=== PATIENT | male | born 1965 | race Caucasian/White ===

== ENCOUNTER 2019-12-25 10:04 | Inpatient (IN) | payer SELFPAY ==
[2019-12-25] VITALS (11 sets, daily range): BP systolic 107–141; BP diastolic 58–85; PULSE 58–150; RESP 18–27; TEMP 36.5–36.8; O2SAT 96–98; BMI 28.1
--- NOTE | 2019-12-25 10:24 | XRR_ITS ---
PROCEDURE INFORMATION: Exam: XR Chest, 1 View Exam date and time: 12/25/2019 10:26 AM Age: 54 years old Clinical indication: Chest pain; Additional info: Cp TECHNIQUE: Imaging protocol: XR of the chest Views: 1 view. COMPARISON: CT chest w con* [id number] 09/17/2014 11:47 AM FINDINGS: Lungs: Unremarkable. No consolidation. Pleural space: Unremarkable. No pleural effusion. No pneumothorax. Heart/Mediastinum: Unremarkable. No cardiomegaly. Bones/joints: Unremarkable. XR/XR chest 1V portable [id number] IMPRESSION: No acute findings.
--- NOTE | 2019-12-25 10:25 | ECG_ITS ---
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 Measurements Intervals [place] Rate: 178 P: PA: -1 QRS: -27 QRSD: 87 T: 72 QT: 252 QTc: 434 Interpretive Statements ATRIAL FIBRILLATION WITH RAPID VENTRICULAR RESPONSE BORDERLINE LEFT AXIS DEVIATION [QRS AXIS < -20] MODERATE ST DEPRESSION [0.05+ mV ST DEPRESSION] No previous ECG available for comparison Electronically Signed On 12-25-2019 18:12:30 CDT by Brittany Hathaway M.D. [id number] f
--- NOTE | 2019-12-25 10:26 | ED_ITS ---
HPI - SOB/Dyspnea General: Chief Complaint: Shortness of Breath/Dyspnea Stated Complaint: SOB, PAIN IN CHEST X 3-4 WKS Time Seen by Provider: 12/25/19 10:21 Source: patient Mode of arrival: ambulatory Limitations: no limitations History of Present Illness: HPI Narrative: 54-year-old male states over the last month he has been having chest pain along with shortness of breath. He states that it is been episodic in nature. He states he also has had palpitations and his heart rate is 178 here with A. fib. He has no known history of A. fib. Denies any recent long trips. Denies any vomiting or abdominal pain. Associated symptoms: Reports chest pain and palpitations; Deny abdominal pain, fever(s), nausea or vomiting Review of Systems Const: Denies: fever(s), chills, body aches or change in appetite Eyes: Denies: blurry vision or eye discomfort ENMT: Denies: throat pain or dental pain Card: Reports: chest pain and palpitations Resp: Denies: dyspnea GI: Denies: abdominal pain, nausea, vomiting or diarrhea : Denies: dysuria Musc: Denies: neck pain or back pain Skin/Breast: Denies: rash Neuro: Denies: headache(s) Psych: Denies: depression Eleazar/Lymph: Denies: easy bruising All/Imm: Denies: urticaria Physical Exam Const: COMMON NORMALS: no acute distress, patient oriented x3 and healthy appearing HENMT: COMMON NORMALS: normocephalic and atraumatic HEAD & SCALP: normocephalic and atraumatic Eye: COMMON NORMALS: Equal, round and reactive pupils present and EOMs intact bilaterally PUPIL: Yes Equal, round and reactive pupils present Neck/C-Spine: COMMON NORMALS: full ROM and supple Chest: COMMONS NORMALS: normal inspection of the chest and normal palpation of entire chest wall Resp: COMMON NORMALS: normal respiratory effort, No retractions, No use of accessory muscles and clear to auscultation bilaterally AUSCULTATION: clear to auscultation bilaterally Cardio: COMMON NORMALS: No murmurs present (Cardio) RATE: tachycardic RHYTHM: abnormal rhythm irregularly irregular GI: COMMON NORMALS: Normal to inspection, nondistended, normoactive bowel sounds present, Soft to palpation, non-tender and no masses PALPATION: Yes Soft to palpation Extremity: COMMON NORMALS: normal to inspection and full ROM Neuro: COMMON NORMALS: patient oriented x3, moves all extremities and no focal motor deficits Psych: COMMON NORMALS: mental status grossly normal, Normal thought process present and cooperative THOUGHT PROCESS: Normal thought process present Skin: COMMON NORMALS: no rashes or lesions noted and no wounds GENERAL SKIN EXAM: no rashes or lesions noted Course Vital Signs: Vital signs: Vital Signs Temperature 97.7 F 12/25/19 10:08 Pulse Rate 125 H 12/25/19 11:30 Respiratory Rate 27 H 12/25/19 11:30 Blood Pressure 114/70 12/25/19 11:30 Pulse Oximetry 97 12/25/19 11:30 MDM - SOB/Dyspnea MDM Narrative: Medical decision making narrative: Patient presents here with palpitations along with pain. He was found to be in A. fib with RVR. Patient is well-appearing here and troponin and d-dimer both negative. His heart rates improved after Cardizem. Spoke to hospitalist will admit to the cardiac gaurav pdown. Lab Data: Labs: Lab Results 12/25/19 12/25/19 12/25/19 Range/Units 10:40 10:40 10:40 WBC 7.9 (4.0-10.0) 10^3/ uL RBC 6.08 H (4.1-5.3) 10^6/u L Hgb 17.3 H (11.7-16.6) g/dL Hct 55.2 H (42.0-52.0) % MCV 90.8 (80-94) fL MCH 28.5 (28.0-34.0) pg MCHC 31.3 (30.0-36.0) g/dL RDW 13.5 (12.1-15.1) % Plt Count 268 (130-400) 10^3/c mm MPV 11.3 H (7.4-10.4) fL Neut % (Auto) 50.6 % Lymph % (Auto) 36.4 % [place] % (Auto) 7.7 % Eos % (Auto) 4.4 % Baso % (Auto) 0.6 % Neut # (Auto) 4.01 (1.8-7.7) 10^3/u L Lymph # (Auto) 2.9 (0.8-4.8) 10^3/u L [place] # (Auto) 0.6 (0.2-0.9) 10^3/u L Eos # (Auto) 0.4 (0.0-0.8) 10^3/u L Baso # (Auto) 0.1 (0.0-0.1) 10^3/u L Nucleated RBC % (a uto) 0 % Nucleated RBCs # 0.0 /100WBC PT 13.10 (12.1-14.9) SECO NDS INR 0.97 (0.8-1.2) D-Dimer <= 0.27 (0-0.59) ug/mIFE U Sodium Cancelled Potassium Cancelled Chloride Cancelled Carbon Dioxide Cancelled Anion Gap Cancelled BUN Cancelled Creatinine Cancelled GFR Calculation Cancelled Glucose Cancelled Calculated Osmolal ity Cancelled Calcium Cancelled Total Bilirubin Cancelled AST Cancelled ALT Cancelled Alkaline Phosphata se Cancelled Troponin T Baselin e Total Protein Cancelled Albumin Cancelled Globulin Cancelled 12/25/19 12/25/19 12/25/19 Range/Units 10:40 11:17 11:17 WBC (4.0-10.0) 10^3/ uL RBC (4.1-5.3) 10^6/u L Hgb (11.7-16.6) g/dL Hct (42.0-52.0) % MCV (80-94) fL MCH (28.0-34.0) pg MCHC (30.0-36.0) g/dL RDW (12.1-15.1) % Plt Count (130-400) 10^3/c mm MPV (7.4-10.4) fL Neut % (Auto) % Lymph % (Auto) % [place] % (Auto) % Eos % (Auto) % Baso % (Auto) % Neut # (Auto) (1.8-7.7) 10^3/u L Lymph # (Auto) (0.8-4.8) 10^3/u L [place] # (Auto) (0.2-0.9) 10^3/u L Eos # (Auto) (0.0-0.8) 10^3/u L Baso # (Auto) (0.0-0.1) 10^3/u L Nucleated RBC % (a uto) % Nucleated RBCs # /100WBC PT (12.1-14.9) SECO NDS INR (0.8-1.2) D-Dimer (0-0.59) ug/mIFE U Sodium 137 Potassium 4.1 Chloride 105 Carbon Dioxide 21 L Anion Gap 15.1 BUN 16 Creatinine 0.9 GFR Calculation 87.3 L Glucose 147 H Calculated Osmolal ity 288 Calcium 9.6 Total Bilirubin 0.2 AST 18 ALT 24 Alkaline Phosphata se 90 Troponin T Baselin e Cancelled 7 Total Protein 6.8 Albumin 4.4 Globulin 2.4 Imaging Data^: CXR: My impression: no acute abnormality EKG Data^: EKG 1: Attestation: I personally reviewed and interpreted this EKG as follows: EKG Interpretation Date: 12/25/19 EKG interpretation time: 10:22 Interpretation: afib hr [address] or t wave abnormalities qrs 87 qtc 346 Discharge Plan Discharge Patient Disposition: Admitted As Inpatient Clinical Impression: Atrial fibrillation Qualifiers: Atrial fibrillation type: unspecified Qualified Code(s): I48.91 - Unspecified atrial fibrillation Condition: Stable Referrals: Arnold Johnston MD [Family Provider] - Coding Level of Care Code ED Executive Assistant for Chg Fwd Exam Comprehensive
[2019-12-25 10:59] LABS: Basophils # 0.1 10^3/uL (0.0-0.1); Basophils % 0.6 %; Eosinophils # 0.4 10^3/uL (0.0-0.8); Eosinophils % 4.4 %; Hematocrit 55.2 % (42.0-52.0); Hemoglobin 17.3 g/dL (11.7-16.6); Lymphocytes # 2.9 10^3/uL (0.8-4.8); Lymphocytes % 36.4 %; Mean Corpuscular HGB Conc 31.3 g/dL (30.0-36.0); Mean Corpuscular Hemoglobin 28.5 pg (28.0-34.0); Mean Corpuscular Volume 90.8 fL (80-94); Mean Platelet Volume 11.3 fL (7.4-10.4); Monocytes # 0.6 10^3/uL (0.2-0.9); Monocytes % 7.7 %; Neutrophils # 4.01 10^3/uL (1.8-7.7); Neutrophils % 50.6 %; Nucleated Red Blood Cells % 0 %; Platelet Count 268 10^3/cmm (130-400); Red Blood Count 6.08 10^6/uL (4.1-5.3); Red Cell Distribution Width 13.5 % (12.1-15.1); White Blood Count 7.9 10^3/uL (4.0-10.0)
[2019-12-25 11:06] LABS: INR 0.97 (0.8-1.2)
[2019-12-25 11:09] LABS: D Dimer <= 0.27 ug/mIFEU (0-0.59)
[2019-12-25] MEDS: sodium chloride 0.9% 1,000 ML 999 ML IV (11:21)
[2019-12-25 12:05] LABS: Alanine Aminotransferase 24 U/L (0-41); Albumin Level 4.4 g/dL (3.5-5.2); Alkaline Phosphatase 90 IU/L (40-130); Anion Gap 15.1 (5-19); Aspartate Amino Transferase 18 U/L (0-40); Blood Urea Nitrogen 16 mg/dL (6-20); Calcium 9.6 mg/dL (8.5-10.5); Carbon Dioxide 21 mmol/L (22-29); Chloride 105 mmol/L (98-107); Creatinine Clr Calc Pharmacy 93.7466; Globulin 2.4 g/dL (1.3-4.6); Glomerular Filtration Rate 87.3 mL/min (90-130); Glucose 147 mg/dL (65-115); Osmolality Calculated 288 mOsm/kg (285-295); Potassium 4.1 mmol/L (3.5-5.1); Sodium 137 mmol/L (136-145); Total Bilirubin 0.2 mg/dL (0.15-1.2); Total Protein 6.8 g/dL (6.6-8.7)
[2019-12-25 12:06] LABS: Troponin(5th) Baseline 7 ng/L (0-15)
--- NOTE | 2019-12-25 12:25 | ECG_ITS ---
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 Measurements Intervals [place] Rate: 122 P: AL: -1 QRS: 12 QRSD: 101 T: 65 QT: 310 QTc: 443 Interpretive Statements ATRIAL FIBRILLATION WITH RAPID VENTRICULAR RESPONSE INCOMPLETE RIGHT BUNDLE BRANCH BLOCK [90+ ms QRS DURATION, TERMINAL R IN V1/V2, 40+ ms S IN I/aVL/V4/V5/V6] ABNORMAL RHYTHM ECG Compared to ECG 12/25/2019 10:22:22 Incomplete right bundle-branch block now present ST (T wave) deviation no longer present Electronically Signed On 12-25-2019 18:23:11 CDT by Brittany Hathaway M.D. [email or web address].[employer]/store/OM/[id number]
[2019-12-25] MEDS: sodium chloride 0.9% 1,000 ML 1000 ML IV ×2 (12:43→12:51)
--- NOTE | 2019-12-25 13:25 | P.HP_ITS ---
Providers/Chief Complaint Chief Complaint: SOB, PAIN IN CHEST X 3-4 WKS History of Present Illness Dru Servin is a 54 year old gentleman with long history of hypertension, reports history of having an PR, no coronary stenting, former smoker quit about 4 months ago, presents to the hospital due to episodes of palpitations, chest pressure, today persistent since about 4 AM, with the longest episode and most discomfort, although these episodes have been on and off for the past month. He denies known history of atrial fibrillation in the past. In ER is found to be in A. fib with RVR, initial heart rates up to 178. Was started on Cardizem drip, and currently up to 15 mg/h. Heart rates with some improvement down into 120s. He says the chest pressure is improved. 2 values of troponins so far normal. He otherwise says he is at baseline state of health. 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 He did injure his left knee somehow about a month and a half ago while walking before started having pain and then noticed some swelling in the joint. Denies at that time have any fevers, any rash or other infection elsewhere. He has been applying some ice. He denies any fevers or chills, denies any headache, nausea vomiting, diarrhea, muscle aches. He denies chest pain or pressure episodes outside of episodes of palpitations. Chest x-ray is unremarkable. D-dimer is low. Review of Systems Const: Denies: fever(s), chills, body aches, change in appetite or malaise Eyes: Denies: blurry vision or eye discomfort ENMT: Denies: throat pain or dental pain Card: Reports: chest pain and palpitations; Denies: edema, swelling of feet/ankles, lightheadedness, syncope, dyspnea on exertion or orthopnea Resp: Denies: dyspnea, productive cough, non-productive cough or hemoptysis GI: Denies: abdominal pain, nausea, vomiting or diarrhea : Denies: dysuria, urinary frequency or urinary urgency Musc: Reports: joint swelling (L knee); Denies: neck pain, back pain, extremity swelling or joint redness Skin/Breast: Denies: rash, erythema, sores, new lesions or changing lesions Neuro: Denies: headache(s), numbness in extremities, weakness in extremities, sensory changes, frequent falls, vertigo or confusion Psych: Denies: change in appetite Endo: Denies: excessive sweating or flushing Eleazar/Lymph: Denies: easy bruising All/Imm: Denies: urticaria Medications/Allergies Allergies Allergy/AdvReac Type Severity Reaction Status Date / Time No Known Allergies Allergy Verified 12/25/19 10:15 PFSH Acute PFSH: Medical History HTN (hypertension) Nephrolithiasis Surgical History H/O lithotripsy Family History Mother CAD (coronary artery disease), Onset Age: 56 CABG Social History Smoking and tobacco status: former smoker Quit status (tobacco): has quit using tobacco Former quit date comment: 4 months ago Alcohol intake: current Alcohol intake frequency: 0-2 Drinks per Day Alcohol type: beer Substance/Drug Use: never Lives independently: Yes Household members: spouse Marital status: Current occupational status: employed Vitals/I&O/Wt Last Vital Signs Temp 97.7 F 12/25/19 10:08 Pulse 118 H 12/25/19 13:18 Resp 20 H 12/25/19 13:18 BP 126/85 12/25/19 13:18 Pulse Ox 98 12/25/19 13:18 12/24/19 12/25/19 12/25/19 22:59 06:59 14:59 Intake Total 1152.958 / 1152.958 Balance 1152.958 / 1152.958 Weight last 48 hrs Weight 81.647 kg Physical Exam Const: COMMON NORMALS: no acute distress and patient oriented x3 HENMT: COMMON NORMALS: oropharynx normal Neck/C-Spine: COMMON NORMALS: no JVD Resp: COMMON NORMALS: normal respiratory effort and clear to auscultation bilaterally AUSCULTATION: clear to auscultation bilaterally Cardio: COMMON NORMALS: no JVD, regular rhythm, S1 normal heart sound present, S2 normal heart sound present and No murmurs present (Cardio) RATE: tachycardic RHYTHM: abnormal rhythm irregularly irregular HEART SOUNDS: S1 normal heart sound present and S2 normal heart sound present GI: COMMON NORMALS: Normal to inspection, nondistended, normoactive bowel sounds present, Soft to palpation and non-tender PALPATION: Yes Soft to palpation Extremity: COMMON NORMALS: no pedal edema OTHER: Appears to have some minimal swelling, possibly minimal joint effusion on the left knee compared to the right, no erythema, no warmth on palpation. No external wounds. Neuro: COMMON NORMALS: patient oriented x3 and moves all extremities Skin: COMMON NORMALS: no rashes or lesions noted GENERAL SKIN EXAM: no rashes or lesions noted Data : 12/25/19 10:40 12/25/19 11:17 A&P Assessment and plan (1) Paroxysmal atrial fibrillation with RVR: A. fib with RVR, new onset, associated with palpitations, chest pressure. Troponin without elevation, not suggestive of acute PR. Chest pressure is better with improvement in heart rate. No suggestion of acute infection. He thought perhaps pain may be contributing due to persistent pain for about a mo nth and a half in his left knee. Potassium is okay. Check magnesium, TSH. Once heart rate improves check echocardiogram. At this time on Cardizem, requiring 15 mg/h. Heart rates are difficult to co ntrol, still in 120s-130s. We will add metoprolol 25 mg twice a day. Titrate depending on response. Monitor on telemetry. Reports some possible history of CAD, reports may have had an PR about 4 years ago. I see in 2016 had a normal Lexiscan stress test. He is a former smoker, quit 4 months ago, has longstanding hypertension, family history of coronary disease, would benefit from additional assessment for underlying coronary disease once PR is ruled out, and heart rate is under control. Continue aspirin which he already takes at home at 81 mg. Check cholesterol, A1c. Chads vasc score is 1, depending on additional findings consider discussion regarding anticoagulation. Status: Acute (2) Swelling of left knee joint: About a month and a half in duration, started while he was walking in the [place]. Appears to have perhaps some effusion on exam. There is no redness or warmth to palpation. Says he has been applying ice. Pain is persistent, and he feels may be contributing to his atrial fibrillation. Will assess by CT scan currently. Depending on findings consider additional evaluation, possibly MRI, possibly referral to orthopedics given he needs to ambulate quite a bit at work. Status: Acute (3) HTN (hypertension): History of longstanding hypertension. He takes medication at home but does not remember what. Currently on diltiazem, metoprolol monitor blood pressures. He will try to get off his medication list. Status: Acute Attestations Medical Necessity Statement*: Admission of over 2 midnights is going to be required for assessment of management of new onset atrial fibrillation with RVR which is resistant to treatment he has so far received, possible underlying coronary disease in a gentleman with risk factors. Coding Level of Care Code Acute Logistics/Shipper for Jigar Sun Diagnoses Paroxysmal atrial fibrillation with RVR I48.0 Swelling of left knee joint M25.462 HTN (hypertension) I10
[2019-12-25 13:47] LABS: Troponin 5 2HR 7.64 ng/L (0-15); Troponin 5 2HR Delta 0.64 ABS# (0-10)
--- NOTE | 2019-12-25 14:07 | CTR_ITS ---
PROCEDURE INFORMATION: Exam: CT Left Lower Extremity Without Contrast, Knee Exam date and time: 12/25/2019 2:47 PM Age: 54 years old Clinical indication: Pain; Knee; Left; Additional info: 1 month pain, effusion TECHNIQUE: Imaging protocol: CT of the Left lower extremity without contrast was performed. Exam focused on the knee. Radiation optimization: All CT scans at this facility use at least one of these dose optimization techniques: automated exposure control; mA and/or kV adjustment per patient size (includes targeted exams where dose is matched to clinical indication); or iterative reconstruction. COMPARISON: No relevant prior studies available. RADIATION DOSE METRICS: Total DLP (mGy-cm): 241.27 FINDINGS: Bones/joints: There is a small knee joint effusion. There is mild cartilage loss in the medial joint space. No chondrocalcinosis. There is a tiny calcification in the posterior knee along the PCL that may be a small osteochondral body measuring 3 mm in size. There is no acute or healing fracture. No dislocation. Patellar enthesopathy is noted. Soft tissues: No soft tissue fluid collection. No foreign body. CT/CT knee LT wo con* [id number] IMPRESSION: There is a small knee joint effusion with moderate degenerative changes. No acute bony abnormality. Radiation Dose CTDIVOL = (mGy): DLP = 241.27 (mGy-cm)
[2019-12-25 14:54] LABS: Magnesium 2.5 mg/dL (1.7-2.3); Thyroid Stimulating Hormone 1.09 uIU/mL (0.27-4.20)
--- NOTE | 2019-12-25 15:13 | PC.NURSE ---
pt arrived from ed via stretcher. pt on portable monitor heart rate in the 60's, cardizem titrated down to 10. pt transferred to bed. admission completed, call light within reach, will continue to monitor.
[2019-12-25] MEDS: heparin 5,000 unit/mL INJ 1 mL 5000 UNIT SUBCUT (15:34)
[2019-12-25] MEDS: metoprolol tartrate 25 mg Tablet PO (15:35)
[2019-12-25] MEDS: aspirin 81 mg Chew Tablet PO (15:35)
--- NOTE | 2019-12-25 16:25 | ECG_ITS ---
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 Measurements Intervals [place] Rate: 57 P: 44 IA: 135 QRS: -1 QRSD: 114 T: -30 QT: 390 QTc: 382 Interpretive Statements SINUS BRADYCARDIA MODERATE INTRAVENTRICULAR CONDUCTION DELAY [110+ ms QRS DURATION] NONSPECIFIC T-WAVE ABNORMALITY Compared to ECG 12/25/2019 13:35:44 Intraventricular conduction delay now present T-wave abnormality now present Atrial fibrillation no longer present Incomplete right bundle-branch block no longer present Electronically Signed On 12-25-2019 18:21:58 CDT by Brittany Hathaway M.D. [id number]
[2019-12-25 17:44] LABS: Troponin 5 6HR 7.43 ng/L (0-15); Troponin 5 6HR Delta 0.43 ng/L (0-12)
[2019-12-26] VITALS: BP 105/63; PULSE 60; RESP 17; TEMP 36.9; O2SAT 95
--- NOTE | 2019-12-26 01:49 | PC.NURSE ---
Patients diltiazem was stopped at 1700. patient has been stable. notified DR. Braden V/O continue to hold but do not D/C at this time.
[2019-12-26] MEDS: heparin 5,000 unit/mL INJ 1 mL 5000 UNIT SUBCUT ×4 (01:52→21:42)
[2019-12-26 04:00] VITALS: BP 121/68; PULSE 58; RESP 20; TEMP 36.9; O2SAT 96
[2019-12-26 06:38] LABS: Alanine Aminotransferase 20 U/L (0-41); Albumin Level 3.8 g/dL (3.5-5.2); Alkaline Phosphatase 68 IU/L (40-130); Anion Gap 15.2 (5-19); Aspartate Amino Transferase 14 U/L (0-40); Blood Urea Nitrogen 18 mg/dL (6-20); Calcium 8.8 mg/dL (8.5-10.5); Carbon Dioxide 22 mmol/L (22-29); Chloride 106 mmol/L (98-107); Creatinine Clr Calc Pharmacy 93.7466; Globulin 2.2 g/dL (1.3-4.6); Glomerular Filtration Rate 87.3 mL/min (90-130); Glucose 128 mg/dL (65-115); Magnesium 2.1 mg/dL (1.7-2.3); Osmolality Calculated 292 mOsm/kg (285-295); Potassium 4.2 mmol/L (3.5-5.1); Sodium 139 mmol/L (136-145); Total Bilirubin 0.3 mg/dL (0.15-1.2)
[2019-12-26 06:45] LABS: Cholesterol 122 mg/dL (0-200); HDL Cholesterol 37 mg/dL (60-100); LDL Cholesterol Calculated 59 mg/dL (50-129); LDL HDL Ratio 1.59 RATIO (0.00-3.22); Triglycerides 130 mg/dL (0-150)
[2019-12-26 07:20] VITALS: BP 122/75; PULSE 54; RESP 18; TEMP 36.3; O2SAT 96
--- NOTE | 2019-12-26 08:30 | PC.NURSE ---
Patient HR 50-60s NSR, BP 122/75. Telephone order received from Dr. Carter to hold morning metoprolol dose and continue to monitor HR, RBTO.
[2019-12-26] MEDS: aspirin 81 mg Chew Tablet PO (08:31)
[2019-12-26 08:38] LABS: Estmated Average Glucose 131; Hemoglobin A1C 6.2 % (4.0-6.0)
--- NOTE | 2019-12-26 09:00 | ECG_ITS ---
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 Interpretive Statements NAME OF STUDY: LEXISCAN SESTAMIBI STRESS TEST INDICATION: New Afib; Chest Pressure; CAD risk factors PROCEDURE: At the baseline, the blood pressure was 98/76 mmHg with a heart rate of 53 bpm and oxygen saturation 96%. The electrocardiogram showed sinus bradycardia at 54 bpm, normal axis and nonspecific T wave abnormality in lead III. The Lexiscan was infused over a period of 20 seconds. A total of 0.4 milligrams of Lexiscan was infused. The stress phase was continued for a total of 5 minutes. Heart rate at the end of the stress phase was 80 bpm with a blood pressure of 138/58 mmHg and oxygen saturation 97%. The EKG at the peak infusion revealed sinus rhythm with no significant ST-T wave changes. Sestamibi was injected 20 seconds after the Lexiscan infusion. Blood pressure at the end of the recovery phase was 139/58 mmHg, oxygen saturation 96% with a heart rate of 73 beats per minute. CONCLUSION: 1. Normal EKG response to LexiScan infusion. 2. No LexiScan induced chest pain or cardiac arrhythmia. 3. Normal blood pressure and heart rate response. 4. Sestamibi/sestamibi perfusion scan pending; see separate report. Electronically Signed On 12-27-2019 13:24:26 CDT by Brittany Hathaway M.D. [id number]
--- NOTE | 2019-12-26 10:00 | PC.CHAP ---
Pastoral Care Encounter/Spiritual Assessment Type of Contact [] Declined hypo splasher visit [] Patient/Family/Request visit [] Outpatient visit [] Follow-up visit [] Physician referral [] Code/Alert [x] Routine visit [] Staff referral [] Actively dying [] Patient sleeping [] Family support [] [] Out of room [] Palliative care [] [] Receiving care in room [] Pre-surgical visit [] Trauma [] Long length of stay [] ICU visit [] Other: Relational/Emotional Strength [] Patient feels connected with others/family/visitors/staff [] Distress [] Loneliness/isolation [] Abandonment Spirituality of Patient [] Person of Zunilda [] Attends Hoahaoism of their Zunilda [] Believes in Prayer [] Reads Bible or Confucianist materials [] There are Spiritual issues to be addressed Hypoid Gear Generator Interventions [x] Prayer [x] Active listening [x] Non-anxious presence [x] Spiritual/emotional support [] Crisis/trauma care [] Spiritual counseling [] Bereavement support [] Provided bereavement packet [] Provided Bible/devotional materials [] Provided toy/stuffed animal, coloring book to patient or family member [] Provided Communion [] Anointing/Evening Shade [] Salvation [x] Completed spiritual assessment [] Other: Impact on Illness or Injury [] Angry [] Fearful [] Anxious [] Often cries [] Exhaustion [] Unable to work [] Unable to attend alevism [] Unable to walk/stand [] Unable to read [] Unable to drive [] Unable to eat/drink [] Unable to sleep [] Unable to be with family [] Patient intubated [] Other: Summary Patient resting well. Gentle man, awaiting tests Time spent with patient 10 min
--- NOTE | 2019-12-26 10:09 | P.PN_ITS ---
Subjective Subjective: Interval history: No acute overnight events. Awaiting stress test, however unable to be performed as the nuclear medicine lab is done today. CT of the leg returned with some mild effusion and degenerative changes of the left knee. No overt signs of septic arthritis. Medications: Reviewed: Yes Vitals/I&O/Wt Last Vital Signs Temp 97.4 F L 12/26/19 07:20 Pulse 54 L 12/26/19 07:20 Resp 18 12/26/19 07:20 BP 122/75 12/26/19 07:20 Pulse Ox 96 12/26/19 07:20 12/25/19 12/26/19 12/26/19 22:59 06:59 14:59 Intake Total 531.334 / 0522.059 1873 / 3024.292 240 / 240 Balance 531.334 / 0886.106 1002 / 3024.292 240 / 240 Weight last 48 hrs Weight 81.647 kg Physical Exam Narrative: EXAM NARRATIVE: GEN: Awake, alert and oriented, no acute distress CVS: S1S2 N RS: CTA B/L Abd: Soft, nt/nd , bs+ SUPERVISOR CRACK OFF: no focal neuro deficits Extremities mild fullness along the medial aspect of the nail, no gross signs of septic arthritis. Data : 12/25/19 10:40 12/26/19 05:18 A&P Assessment and plan (1) Paroxysmal atrial fibrillation with RVR: A. fib with RVR, new onset, associated with palpitations, chest pressure. Troponin without elevation, not suggestive of acute [place]. Chest pain is now currently resolved. Patient is currently converted to sinus rhythm, heart rate remains controlled Continue metoprolol 25 mg twice a day. Continue aspirin which he already takes at home at 81 mg. Chads vasc score is 1 Stress test planned however NM is down today, will be done tomorrow. Status: Acute (2) Swelling of left knee joint: About a month and a half in duration, started while he was walking in the [place]. CT with effusion and degenrative changes No signs of septic arthritis PT/OT assessment for OA referral to orthopedics as outpatient Status: Acute (3) HTN (hypertension): Status: Acute (4) Knee joint effusion: Status: Acute Attestations Medical Necessity Statement*: planned fro stress test tomorrow morning Coding Level of Care Code Acute Rating Clerk for g Fwd Diagnoses Paroxysmal atrial fibrillation with RVR I48.0 Swelling of left knee joint M25.462 HTN (hypertension) I10 Knee joint effusion M25.469
[2019-12-26 12:37] VITALS: BP 143/79; PULSE 64; RESP 21; TEMP 36.7; O2SAT 97
[2019-12-26 14:45] VITALS: BP 127/75; PULSE 59; RESP 21; TEMP 36.6; O2SAT 96
[2019-12-26] MEDS: metoprolol tartrate 25 mg Tablet PO (17:24)
--- NOTE | 2019-12-26 17:55 | USCV_ITS ---
Dru Servin Age: 54 Gender: M : 1965 Exam Date: 12/26/2019 06:24 Ordering Phys: Marbin Sandra MD Technologist: Manish Lantigua Exam Location: [facility] [place] Site Location: [[facility] Site Location] Indication: NEW AFIB BP: / HR: 53 Rhythm: Sinus Technical Quality: Adequate MEASUREMENTS (Male / Female) Normal Values 2D ECHO LV Diastolic Diameter PLAX 4.7 cm 4.2 - 5.9 / 3.9 - 5.3 cm LV Systolic Diameter PLAX 2.6 cm IVS Diastolic Thickness 1.2 cm 0.6 - 1.0 / 0.6 - 0.9 cm IVS Systolic Thickness 1.7 cm LVPW Diastolic Thickness 0.8 cm 0.6 - 1.0 / 0.6 - 0.9 cm LVPW Systolic Thickness 1.5 cm LVOT Diameter 2.1 cm LV Ejection Fraction 2D Teich 76.0 % LV Ejection Fraction MOD 2C 64.6 % LV Ejection Fraction 2C AL 65.4 % LA Diameter 3.3 cm LA Width 3.6 cm LA Height 4.4 cm RA Width 4.0 cm RA Height 4.8 cm M-MODE LV Diastolic Diameter MM 5.0 cm 4.2 - 5.9 / 3.9 - 5.3 cm LV Systolic Diameter MM 3.6 cm LV Ejection Fraction MM Teich 55.0 % IVS Diastolic Thickness MM 1.1 cm 0.6 - 1.0 / 0.6 - 0.9 cm IVS Systolic Thickness MM 1.4 cm LVPW Diastolic Thickness MM 1.3 cm 0.6 - 1.0 / 0.6 - 0.9 cm LVPW Systolic Thickness MM 1.6 cm RV Diastolic Diameter MM 1.5 cm Aortic Annulus Diameter 3.7 cm LA Ao Ratio MM 1.0 MV E Point Septal Separation 0.5 cm DOPPLER AV Peak Velocity 127.0 cm/s LVOT Peak Velocity 80.0 cm/s AV Area Cont Eq vti 2.4 cm squared AV Area Cont Eq pk 2.2 cm squared MV Area PHT 5.0 cm squared Mitral E to A Ratio 1.1 MV E' Velocity 43.0 cm/s Mitral E to MV E' Ratio 6.0 Mitral E to LV E' Lateral Ratio 5.5 Mitral E to LV E' Septal Ratio 6.5 TR Peak Velocity 202.7 cm/s TR Peak Gradient 16.4 mmHg TV Peak E Velocity 71.0 cm/s Right Atrial Pressure 3.0 mmHg Pulmonary Artery Systolic Pressu 19.4 mmHg PV Peak Velocity 92.0 cm/s FINDINGS Left Ventricle Normal left ventricular size, systolic function and wall thickness, with no regional wall motion abnormalities. LVEF is 55-60%. Normal left ventricular wall thickness. Normal diastolic filling pattern. Right Ventricle The right ventricle is normal in size and function. Right Atrium The right atrium is normal in size. Left Atrium The left atrium is normal in size. Mitral Valve Structurally normal mitral valve without significant stenosis or prolapse. There is no mitral regurgitation. Aortic Valve Structurally normal aortic valve without significant sclerosis or stenosis. There is no aortic regurgitation. Tricuspid Valve Structurally normal tricuspid valve without significant stenosis or regurgitation. RVSP is 25-30mmHg Pulmonic Valve Structurally normal pulmonic valve without significant stenosis. There is no pulmonic regurgitation. Pericardium Normal pericardium without effusion. Aorta Normal ascending aorta dimension. CONCLUSIONS LV systolic function is normal with EF of 55-60% Diastolic function is normal No comparison studies available Davis Collado MD (Electronically Signed) Final Date: 26 December 2019 08:32 S
--- NOTE | 2019-12-26 19:00 | PC.NURSE ---
Shift Summary Patient had uneventful shift. VSS. No chest pain reported by patient. Report given to oncoming nurse. No further needs identified at this time.
--- NOTE | 2019-12-26 19:25 | PC.NURSE ---
Rounding: Patient resting in bed. Patient is alert and oriented denies any pain or needs.
[2019-12-26 20:00] VITALS: BP 122/72; PULSE 62; RESP 22; TEMP 36.6; O2SAT 97
[2019-12-27] VITALS (7 sets, daily range): BP systolic 127–153; BP diastolic 67–78; PULSE 50–81; RESP 17–21; TEMP 36.4–36.8; O2SAT 95–98
[2019-12-27 04:46] LABS: Basophils # 0.1 10^3/uL (0.0-0.1); Basophils % 0.9 %; Eosinophils # 0.4 10^3/uL (0.0-0.8); Eosinophils % 4.9 %; Hemoglobin 15.2 g/dL (11.7-16.6); Lymphocytes # 3.3 10^3/uL (0.8-4.8); Lymphocytes % 38.5 %; Mean Corpuscular Hemoglobin 28.3 pg (28.0-34.0); Mean Corpuscular Volume 91.2 fL (80-94); Mean Platelet Volume 11.5 fL (7.4-10.4); Monocytes # 0.8 10^3/uL (0.2-0.9); Monocytes % 9.4 %; Neutrophils # 3.92 10^3/uL (1.8-7.7); Neutrophils % 45.9 %; Nucleated Red Blood Cells % 0 %; Platelet Count 223 10^3/cmm (130-400); Red Blood Count 5.37 10^6/uL (4.1-5.3); Red Cell Distribution Width 13.5 % (12.1-15.1); White Blood Count 8.5 10^3/uL (4.0-10.0)
[2019-12-27 05:01] LABS: Alanine Aminotransferase 21 U/L (0-41); Alkaline Phosphatase 76 IU/L (40-130); Anion Gap 12.3 (5-19); Aspartate Amino Transferase 17 U/L (0-40); Blood Urea Nitrogen 20 mg/dL (6-20); Calcium 9.2 mg/dL (8.5-10.5); Carbon Dioxide 25 mmol/L (22-29); Chloride 103 mmol/L (98-107); Creatinine Clr Calc Pharmacy 84.3719; Globulin 2.5 g/dL (1.3-4.6); Glomerular Filtration Rate 77.3 mL/min (90-130); Glucose 117 mg/dL (65-115); Magnesium 2.2 mg/dL (1.7-2.3); Osmolality Calculated 286 mOsm/kg (285-295); Potassium 4.3 mmol/L (3.5-5.1); Sodium 136 mmol/L (136-145); Total Bilirubin 0.3 mg/dL (0.15-1.2); Total Protein 6.5 g/dL (6.6-8.7)
--- NOTE | 2019-12-27 05:36 | PC.NURSE ---
End of shift: Patient has had a uneventful shift. Patient is alert and oriented. Patient has rested well this shift. Denies any pain.
[2019-12-27 05:53] LABS: Uric Acid 6.8 mg/dL (3.4-7.0)
[2019-12-27] MEDS: heparin 5,000 unit/mL INJ 1 mL 5000 UNIT SUBCUT (06:10)
--- NOTE | 2019-12-27 08:00 | NMCV_ITS ---
NM enmanuel perf SPECT r/s* [id number] Dru Servin Age: 54 Gender: M : 1965 Exam Date: 12/27/2019 07:58 Ordering Phys: Marbin Sandra MD Technologist: HARIS Billings Exam Location: [facility] Indications: SOB, chest pain 3-4 weeks STRESS TEST [facility] IMAGE PROTOCOL Rest/Stress 1 Lexiscan Day Radiopharmaceutical Dose (mCi) Administration Site Administered by Rest: Tc-99m 10.6 IV HARIS Veloz Stress:Tc-99m 32.6 IV HARIS Billings Rest: 27-Dec-2019 60 Discovery 630 Stress: 27-Dec-2019 60 Discovery 630 0.4mg Lexiscan. Images obtained in supine and prone position. SPECT RESULTS Technical Quality: Excellent Raw Data Analysis: Normal Image Corrections: No attenuation or motion correction applied Summed Stress Score: 0 Summed Rest Score: 0 Summed Difference Score: 0 PERFUSION FINDINGS SPECT images demonstrate homogeneous tracer distribution throughout the myocardium. FUNCTIONAL RESULTS (calculated via Gated SPECT) Stress Image LV EF (%): 50 Stress EDV (mL):94 TID: 1.13 Stress ESV (mL):47 FUNCTIONAL FINDINGS: The left ventricle is normal in size. Transient Ischemia Dilatation of 1.1. There is mildly decreased left ventricular systolic function. The left ventricular ejection fraction is mildly reduced with a value of 50%. There is mildly decreased wall thickening. Normal end-diastolic and end-systolic volumes. IMPRESSIONS 1. Myocardial perfusion imaging is normal. 2. There is mildly decreased left ventricular systolic function, LVEF=50%. 3. There is mildly decreased wall thickening. 4. This study suggests a low likelihood of angiographically significant coronary artery disease. 5. Normal EKG response to Lexiscan infusion. This is has limited sensitivity due to pharmacological protocol. Refer to EKG portion of the study for further details. Brittany Hathaway MD (Electronically Signed) Final Date: 27 December 2019 13:26 S
[2019-12-27] MEDS: regadenoson 0.4 Mg/5 ml Syringe IVP (08:47)
--- NOTE | 2019-12-27 08:59 | PC.CHAP ---
Pastoral Care Encounter/Spiritual Assessment Type of Contact [] Declined book shelver visit [] Patient/Family/Request visit [] Outpatient visit [] Follow-up visit [] Physician referral [] Code/Alert [x] Routine visit [] Staff referral [] Actively dying [] Patient sleeping [] Family support [] [] Out of room [] Palliative care [] [] Receiving care in room [] Pre-surgical visit [] Trauma [] Long length of stay [] ICU visit [] Other: Relational/Emotional Strength [] Patient feels connected with others/family/visitors/staff [] Distress [] Loneliness/isolation [] Abandonment Spirituality of Patient [] Person of Zunilda [] Attends Christian of their Zunilda [] Believes in Prayer [] Reads Bible or Tenriism materials [] There are Spiritual issues to be addressed Senior Analyst Programmer Interventions [x] Prayer [x] Active listening [x] Non-anxious presence [x] Spiritual/emotional support [] Crisis/trauma care [] Spiritual counseling [] Bereavement support [] Provided bereavement packet [] Provided Bible/devotional materials [] Provided toy/stuffed animal, coloring book to patient or family member [] Provided Communion [] Anointing/[place] [] Salvation [x] Completed spiritual assessment [] Other: Impact on Illness or Injury [] Angry [] Fearful [] Anxious [] Often cries [] Exhaustion [] Unable to work [] Unable to attend scientologist [] Unable to walk/stand [] Unable to read [] Unable to drive [] Unable to eat/drink [] Unable to sleep [] Unable to be with family [] Patient intubated [] Other: Summary preparing for stress test... looking for answer regarding high blood pressure Time spent with patient 10 min
[2019-12-27] MEDS: aspirin 81 mg Chew Tablet PO (09:24)
--- NOTE | 2019-12-27 09:45 | PC.NURSE ---
verbal order received from Dr. Carter to hold metoprolol dose due to bradycardia, RBVO. Nurse to continue to monitor.
--- NOTE | 2019-12-27 16:05 | PC.NURSE ---
Discharge instructions given per the physician's orders. Patient verbalized understanding and did not have any further questions. Patient has dressed self, IV has been removed. Patient at bedside to take patient home in private vehicle. No further needs identified at this time.
--- NOTE | 2019-12-27 16:34 | PM.DCS ---
Discharge Providers Date of Admission: 12/25/19 12:12 Date of Discharge: December 27, 2019 Attending Provider at Admission: Marbin Sandra Attending Provider at Discharge: Lori Carter MD Diagnoses at Discharge Discharge Diagnosis (1) Paroxysmal atrial fibrillation with RVR: Status: Acute (2) Swelling of left knee joint: Status: Acute (3) HTN (hypertension): Status: Acute (4) Knee joint effusion: Status: Acute Reason for Visit Reason for Visit: SOB, PAIN IN CHEST X 3-4 WKS Hospital Course Discharge Summary: Dru Servin is a 54 year old gentleman with long history of hypertension, reports history of having an TX, no coronary stenting, former smoker quit about 4 months ago, presents to the hospital due to episodes of palpitations, chest pressure. In ER is found to be in A. fib with RVR, initial heart rates up to 178. Was started on Cardizem drip and converted to sinus rhythm within about 24 hours. Since then he has been maintained on metoprolol 25 mg p.o. twice daily. Due to heart rate dropping down to 50s, metoprolol dose was eventually reduced to 12.5 mg p.o. twice daily on discharge. Losartan has remained on hold while he has been in the hospital and blood pressure has been maintained. He is asked to keep a blood pressure log at home and to resume losartan diastolic blood pressure exceeds 150 mmHg. He also underwent a stress test to rule out any underlying ischemia and this resulted as within normal range today. Echocardiogram showed LV systolic function of EF 55 to 60% and normal diastolic function.Chads vasc score is 1, not started on anticoagulation at this time. follow up for further assessment with cardiology as an outpatient in the next 7 to 10 days. Physical Exam Narrative: EXAM NARRATIVE: GEN: Awake, alert and oriented, no acute distress CVS: S1S2 N RS: CTA B/L Abd: Soft, nt/nd , bs+ PERSONAL INJURY LITIGATION PARALEGAL: no focal neuro deficits Discharge Data Data Completed and Pending: Completed Studies During Hospitalization Category Date Time Status CT knee LT wo con * [id number] Routine Cat Scan 12/25/19 14:07 Completed Sestamibi Stress Test Request Routi ne Exams 12/26/19 09:00 Completed XR chest 1V megha ble [id number] Stat Exams 12/25/19 10:24 Completed NM enmanuel perf SPECT r/s* [id number] Routin e Nuc Med 12/27/19 08:00 Completed CV echo complete* [id number] Routine Ultrasound 12/26/19 17:55 Completed Pending at discharge Category Date Time Status Basic Metabolic P adonay AM LABS Lab 12/28/19 04:00 Ordered Comprehensive Met abolic Panel AM LA BS Lab 12/28/19 04:00 Ordered Magnesium AM LABS Lab 12/28/19 04:00 Ordered Labs from last 24 hours 12/27/19 12/27/19 12/27/19 04:05 04:05 04:05 WBC 8.5 RBC 5.37 H Hgb 15.2 Hct 49.0 MCV 91.2 MCH 28.3 MCHC 31.0 RDW 13.5 Plt Count 223 MPV 11.5 H Neut % (Auto) 45.9 Lymph % (Auto) 38.5 Barton % (Auto) 9.4 Eos % (Auto) 4.9 Baso % (Auto) 0.9 Neut # (Auto) 3.92 Lymph # (Auto) 3.3 Barton # (Auto) 0.8 Eos # (Auto) 0.4 Baso # (Auto) 0.1 Nucleated RBC % (a uto) 0 Nucleated RBCs # 0.0 Sodium 136 Potassium 4.3 Chloride 103 Carbon Dioxide 25 Anion Gap 12.3 BUN 20 Creatinine 1.0 GFR Calculation 77.3 L Glucose 117 H Calculated Osmolal ity 286 Uric Acid 6.8 Calcium 9.2 Magnesium 2.2 Total Bilirubin 0.3 AST 17 ALT 21 Alkaline Phosphata se 76 Total Protein 6.5 L Albumin 4.0 Globulin 2.5 Vitals: Last Vital Signs Temp 98.0 F 12/27/19 15:03 Pulse 65 12/27/19 15:03 Resp 17 12/27/19 15:03 BP 147/67 12/27/19 15:03 Pulse Ox 97 12/27/19 15:03 Discharge Plan Discharge Patient Disposition: Home Condition: Stable Prescriptions: New nitroglycerin 0.4 mg Tablet, Sublingual 0.4 mg sublingual Q5M PRN (Reason: Chest Pain) 30 Days Qty: 30 RF: 0 metoprolol tartrate 25 mg Tablet 12.5 mg PO BID 30 Days Qty: 60 RF: 0 Continued aspirin 81 mg Tablet,Chewable 81 mg PO DAILY RF: 0 Discontinued losartan 100 mg tablet 50 mg PO DAILY RF: 0 Discharge Orders: Discharge Order (Routine); Ordered 12/27/19 Ordered By: Lori Carter Referrals: Rosina Quan MD [Physician] - 7-10 days (Please follow-up with Dr. Quan on at 3:00p.m. If you have any questions or need reschedule. Please call ) Arnold Johnston MD [Family Provider] - (Please follow-up with Dr. Johnston on at 10:00a.m. If you have any questions or need to reschedule. Please call [phone]) Isaias Rothman MD [Physician] - (Please follow-up with Dr. Rothman on at 10:30a.m. If you have any questions or need to reschedule. Please call [phone]) Discharge Diet: Usual diet, Cardiac and Low Salt Discharge Activity: Resume usual activity Patient Instructions: Metoprolol (By mouth), Nitroglycerin (By mouth), Atrial Fibrillation (DC), Hypertension (DC) Activity Restrictions/Additional Instructions: keep BP log at home, resume losartan if top number >150 Discharge Attestations Time Spent in Discharge Care*: greater than 30 min Quality Metrics Clinical Quality Measures During this hospital stay, did patient experience: None Coding Level of Care Code Acute Ammonia Technician for Chg Fwd Diagnoses Paroxysmal atrial fibrillation with RVR I48.0 Swelling of left knee joint M25.462 HTN (hypertension) I10 Knee joint effusion M25.469
== END 2019-12-27 16:08 | disposition home or self-care (01) | DRG 310 ==
LOC: ER 12:58 → CSU 13:30
PROVIDERS: Emergency Medicine; Admitting Provider Internal Medicine; Family Provider Family Medicine; Visit Provider Student in an Organized Health Care Education/Training Program
DX: I48.20 Chronic atrial fibrillation, unspecified (principal); I10 Essential (primary) hypertension; I25.2 Old myocardial infarction; Z87.891 Personal history of nicotine dependence; M25.462 Effusion, left knee; Z79.82 Long term (current) use of aspirin; Z87.442 Personal history of urinary calculi
CPT/HCPCS: 12345; 36415; 71045; 73700; 78452; 80048; 80053; 80061; 83036; 83735; 84443; 84484; 84550; 85025; 85378; 85610; 93005; 93017; 93306; 96372; 96375; 97161; 99283; A9500; J1644; J2785; J3490; J7030

== ENCOUNTER → 2020-01-09 10:43 | Outpatient (BNVA) | payer SELFPAY | PROVIDERS: Family Provider Family Medicine; PCP Family Medicine; Referring Provider Family Medicine; Visit Provider Orthopaedic Surgery | DX: M25.461 Effusion, right knee (principal); M25.462 Effusion, left knee | CPT/HCPCS: 73560; 73565 ==

== ENCOUNTER → 2020-06-04 08:11 | Outpatient (BNVA) | payer SELFPAY | PROVIDERS: Family Provider Family Medicine; PCP Family Medicine; Visit Provider Orthopaedic Surgery | DX: Z01.812 Encounter for preprocedural laboratory examination (principal); Z20.828 Contact with and (suspected) exposure to other viral communicable diseases | CPT/HCPCS: 87635 ==

== ENCOUNTER → 2020-06-13 10:13 | Outpatient (BNVA) | payer SELFPAY | PROVIDERS: Family Provider Family Medicine; PCP Family Medicine; Visit Provider Orthopaedic Surgery | DX: Z01.812 Encounter for preprocedural laboratory examination (principal); Z20.822 Contact with and (suspected) exposure to COVID-19 | CPT/HCPCS: 87635 ==

== ENCOUNTER 2020-06-18 08:44 | Observation (INO) | payer SELFPAY ==
[2020-06-04 11:24] VITALS: BMI 29.0
--- NOTE | 2020-06-04 11:39 | ANES.PREANE2 ---
Pre-Anesthetic Assessment Pre-Anesthetic Assessment: Height/Weight: Height 1.7 m Weight 83.915 kg Preop Diagnosis: hip pain Proposed Procedure: Operation Date: 06/18/20 07:00 Proposed Procedures p Total Knee Arthroplasty 97412 M17.12(Left) - Isaias Rothman MD Familial anesthetic complications: none Social: Social History: Tobacco Comment: chews Exam: Pre-Anes Outpt Exam: alert, oriented x 3, clear to auscultation bilaterally and regular rate & rhythm Airway: Cervical ROM: WNL MP: 3 Dentition: False CV/HEM: CV/HEM: Afib (on metoprolol), HTN and CO (1991) Comments: will see Dr. Quan on June 11 Can walk up two flights of stairs w/ out SOB or chest pains GI: GI: GERD Anesthetic Plan: ASA status: 3 Anesthesia: MAC and Regional (specify below) Other: SAB + adductor canal Risk of > 500 ml blood loss (7ml/kg in children): Yes, adequate IV access and fluids planned PFSH Anesthesia PFSH: Medical History Atypical chest pain Benign essential HTN History of smoking HTN (hypertension) Nephrolithiasis Surgical History H/O lithotripsy Family History Mother CAD (coronary artery disease), Onset Age: 56 CABG Social History Smoking and tobacco status: former smoker Quit status (tobacco): has quit using tobacco Former quit date comment: 4 months ago Alcohol intake: current Alcohol intake frequency: 0-2 Drinks per Day Alcohol type: beer Lives independently: Yes Household members: spouse Marital status: Current occupational status: employed Data Anesthesia Cardiac Studies: No Data to Display
[2020-06-18] VITALS (20 sets, daily range): BP systolic 92–147; BP diastolic 48–81; PULSE 44–100; RESP 13–185; TEMP 36.4–36.9; O2SAT 93–100
[2020-06-18] MEDS: sodium chloride 0.9% 1,000 ML 30 ML IV (06:08)
--- NOTE | 2020-06-18 07:00 | P.HP_ITS ---
Same Day Surgery H&P Indication for Procedure/HPI DATE OF PROCEDURE: June 18, 2020 CHIEF COMPLAINT/INDICATIONFOR SURGICAL PROCEDURE: Osteoarthritis left knee. Has failed conservative regimen including anti-inflammatories Ultram and activity modification. Unable to work and here for elective left total knee arthroplasty PREOP DIAGNOSIS: hip pain PLANNED PROCEDRUE: Operation Date: 06/18/20 07:00 Proposed Procedures p Total Knee Arthroplasty 76972 M17.12(Left) - Isaias Rothman MD Medications/Allergies* Home Medications Medication Instructions Recorded Confirmed Type aspirin 81 mg PO DAILY 12/26/19 06/18/20 History tramadol 50 mg tablet 50 mg PO DAILY PRN 05/14/20 06/18/20 History Allergies/Adverse Reactions Allergy/AdvReac Type Severity Reaction Status Date / Time No Known Allergies Allergy Verified 06/11/20 11:17 Current Medications: Generic Name Dose Route Start Last Admin Trade Name Freq PRN Reason Stop Dose Admin Sodium Chloride 1,000 mls @ 30 mls/hr 06/18/20 05:45 06/18/20 06:08 Sodium Chloride 0.9% IV 06/19/20 05:44 30 mls/hr .Q24H ZOYA Administration Pertinent History/Comorbid Conditions* Medical History (Updated 06/11/20 @ 12:07 by Rosina Quan MD) Atypical chest pain Benign essential HTN History of smoking HTN (hypertension) Nephrolithiasis Surgical History (Updated 12/25/19 @ 14:16 by Marbin Sandra MD) H/O lithotripsy Family History (Updated 06/11/20 @ 11:26 by Karla Cade RN) Diabetes Mother Grandmother Father Brother Sister CAD (coronary artery disease) Mother, Onset Age: 56 CABG Cancer Grandfather Denies family history of Clotting disorder Dementia Chronic kidney disease (CKD) Suicide Anesthesia complication Bleeding disorder Lung disease Stroke Social History Smoking and tobacco status: former smoker Quit status (tobacco): has quit using tobacco Former quit date comment: 4 months ago Alcohol intake: current Alcohol intake frequency: 0-2 Drinks per Day Alcohol type: beer Lives independently: Yes Household members: spouse Marital status: Current occupational status: employed Pertinent Exam Findings alert, oriented x 3, clear to auscultation bilaterally, regular rate & rhythm and operative site marked Recommendations Surgery/Procedure today Coding Level of Care Code Acute Customer Operations Representative for Fredisg Corinne
--- NOTE | 2020-06-18 07:00 | P.ANESUD_ITS ---
Pre-Anesthetic Update Pre-Anesthetic Assessment: Date of Surgery/Procedure: 06/18/20 Preop Robyn gnosis: hip pain Proposed Procedure: Operation Date: 06/18/20 07:00 Proposed Procedures p Total Knee Arthroplasty 41726 M17.12(Left) - Isaias Rothman MD Any changes to Pre-Anesthetic Assessment?: No Last Intake: Intake Last Liquid Date 06/17/20 Last Liquid Time 22:00 Last Solid Date 06/17/20 Last Solid Time 22:00 Vitals: Temperature 97.6 F 06/18/20 05:51 Temperature Source Temporal Artery S can 06/18/20 05:51 Pulse Rate 52 L 06/18/20 05:51 Pulse Rhythm 06/18/20 05:51 Pulse Strength 3+ Normal 06/18/20 05:51 Respiratory Rate 18 06/18/20 05:51 Blood Pressure 147/75 06/18/20 05:51 Blood Pressure Nicole n 99 06/18/20 05:51 Pulse Oximetry 97 06/18/20 05:51 Oxygen Delivery Me thod 06/18/20 05:51 Exam: Pre-Anes Outpt Exam: alert, oriented x 3, clear to auscultation bilaterally and regular rate & rhythm Cardiac Studies: No Data to Display
--- NOTE | 2020-06-18 07:01 | ANES.PROC ---
Anesthesia Procedures Procedure/Date: 06/18/20 Nerve Block ^: Nerve Block 1: Main Anesthesia: spinal anesthesia block Time Out Performed: Yes Consent: requested by attending/covering physician, from patient, from other, risks and benefits reviewed and patient agrees to proceed Nerve block location: adductor canal (L) Anesthesia monitors applied: pulse oximetry, EKG, BP cuff and oxygen Nerve block position: supine Anesthetic Used: ropivicaine 0.5% and with decadron (4 mg) Amount of anesthesia used (mL): 30 Ultrasound used to: recognize landmarks and visualize and ID femerol nerve Nerve Stimulator Used?: No Interscalene/Femoral BLK: 4 stimuplex 21 g needle used for position and inplane approach, visualize local anesthetic spread and no vascular puncture identified Injection: neg aspiration of heme Patient Tolerated Procedure: well and no complications Complications: none
[2020-06-18] MEDS: CELEcoxib 200 mg Capsule 400 MG PO (07:12)
[2020-06-18] MEDS: oxyCODONE 20 mg ER (12 HR) Tablet PO (07:12)
[2020-06-18] MEDS: acetaminophen 500 mg Tablet 1000 MG PO ×3 (07:12→23:34)
[2020-06-18] MEDS: gabapentin 300 mg Capsule PO ×3 (07:12→17:23)
[2020-06-18] MEDS: ketorolac 30 mg/mL INJ (07:58)
[2020-06-18] MEDS: EPINEPHrine 1 mg/mL INJ (07:59)
[2020-06-18] MEDS: tranexamic acid 1,000 mg/10mL SDV 1000 MG IRRIGATION (08:01)
--- NOTE | 2020-06-18 08:19 | ECG_ITS ---
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 Measurements Intervals Mcnabb Rate: 42 P: 43 SD: 133 QRS: -2 QRSD: 98 T: 9 QT: 430 QTc: 363 Interpretive Statements SINUS BRADYCARDIA Compared to ECG 12/25/2019 18:16:39 Intraventricular conduction delay no longer present T-wave abnormality no longer present Electronically Signed On 06-21-2020 21:09:21 CDT by Brittany Hathaway M.D. [id number]
--- NOTE | 2020-06-18 09:03 | XRR_ITS ---
PROCEDURE INFORMATION: Exam: XR Left Knee Exam date and time: 06/18/2020 9:07 AM Age: 54 years old Clinical indication: Device placement; Joint replacement hardware; Prior surgery; Surgery date: Post-operative (0-2 days); Additional info: Postop TECHNIQUE: Imaging protocol: XR Left knee. Views: 1 or 2 views. COMPARISON: CR XR knees AP WB w LT lmt ORTH 01/09/2020 10:49 AM FINDINGS: Bones/joints: Interval left total knee arthroplasty. No periprosthetic lucency. No fracture. No dislocation. Soft tissues: Postoperative soft tissue changes are present. XR/XR knee LT 1-2V [id number] IMPRESSION: Postoperative changes.
--- NOTE | 2020-06-18 09:05 | P.OP_ITS ---
Operative Report Date of procedure: June 18, 2020 Pre-op Diagnosis: Osteoarthritis Left knee Post-op diagnosis: same Post-op Findings: Same Procedure Done: Left total knee arthroplasty Implants: Caruthers total knee arthroplasty components were used includin) Size 4 triathalon cruciate retaining femoral component 2) Size 4 Tritanium tibial component 3) Size 4/11 mm thickness CR tibial bearing insert Pathology: none sent Surgeon: Isaias Rothman Anesthesia: Nerve Block (Spinal, adductor canal block) Estimated blood loss (mL): 100 Findings: The patient had eburnated bone over his medial femoral condyle medial tibial plateau Procedure: The patient was taken to the operating room. Patient was given 1 g of tranexamic acid . The above anesthesia provided by the anesthesia service. A timeout was performed. The patient was prepped and draped in the usual fashion with the lower extremity exposed. A anterior incision was made, midline, from a point proximal to the patella to the distal tibial tubercle. The knee was entered through a medial parapatellar approach. The patella could be displaced laterally and the knee flexed. The patellar fat pad was resected to provide better visibility. Retractors were placed medially and laterally adjacent to the tibial plateau. The femoral canal was drilled in line with the longitudinal axis of the femur. Intramedullary femoral guide for used to make a distal femoral cut in 5 degrees of valgus, resecting 8 mm from the more prominent condyle. Next the extra medullary tibial guide was placed in alignment with the longitudinal axis of the tibia. The cutting guides were set to remove just over 9 mm from the high tibial plateau. The proximal tibia was then cut. The femoral measuring guide w as then placed over the distal femur. Rotation was verified checking the relationship of the guide to the condyle and the trochlear groove. The femur was measured and cut for the desired femoral component. The desired tibial baseplate was then chosen. A trial reduction with the femur tibial baseplate and polyethylene was done, assuring that the knee was stable throughout full motion. Ligament balancing involve nothing more than a release of the deep medial collateral ligament.The tibia was prepared for the tibial baseplate. As the patella was pristine and articulated well with the femur the patella was not resurfaced all surfaces were cleaned with pulsatile lavage. The femur tibia and patella were then press-fit into place. The posterior capsule and collateral ligaments were then injected with a solution of 100 mL of 0.2% ropivacaine, 1 mL of a 1:1000 epinephrine solution, and 30 mg of Toradol. Final polyethylene component was then snapped into place into the tibia. 2 grams of tranexamic acid were applied to the wound. The tourniquet was deflated. The tranxanemic acid was left contact with the knee for 5 minutes before the knee was irrigated with saline. The extensor retinaculum was closed with a running 1 Stratafix.. The subcutaneous tissues were closed with 2-0 Vicryl and the skin was closed with a running 4-0 Stratafix. The wound was covered with a Dermabond Prinio dressing. It was covered with 4xrs and a compressive Tubigauae was applied. The patient was taken to recovery room in stable condition.
[2020-06-18] MEDS: sennosides-docusate Tablet 2 TAB PO ×2 (10:47→17:23)
[2020-06-18] MEDS: metoprolol tartrate 25 mg Tablet PO ×2 (10:47→17:23)
[2020-06-18] MEDS: aspirin 81 mg Chew Tablet PO (10:48)
[2020-06-18] MEDS: sodium chloride 0.9% 1,000 ML 100 ML IV ×2 (10:49→21:25)
[2020-06-18] MEDS: TRAMadol 50 mg Tablet PO (10:49)
[2020-06-18] MEDS: ondansetron 2 mg/ML SDV 2 mL 4 MG IVP (11:39)
[2020-06-18] MEDS: oxyCODONE 5 mg IR Tab/Cap PO ×2 (14:29→18:38)
--- NOTE | 2020-06-18 17:48 | ANE.PACU2 ---
Inpatient post-anesthesia follow up: Airway intact: Yes Vital signs: Temperature 97.6 F Pulse Rate 59 Respiratory Rate 18 Blood Pressure 114/66 Pulse Oximetry 97 Oxygen Delivery Me thod Room Air Oxygen Flow Rate 6 Fraction of Inspir ed Oxygen Hydration adequate: Yes Nausea and vomiting: No Pain level: 3 Mental status: Baseline
[2020-06-18] MEDS: CELEcoxib 200 mg Capsule PO (18:31)
[2020-06-19 03:39] LABS: Hemoglobin 12.8 g/dL (11.7-16.6)
[2020-06-19 04:00] VITALS: BP 122/65; PULSE 54; RESP 18; TEMP 36.4; O2SAT 97
[2020-06-19] MEDS: acetaminophen 500 mg Tablet 1000 MG PO (06:09)
[2020-06-19] MEDS: CELEcoxib 200 mg Capsule PO (06:09)
[2020-06-19 07:20] VITALS: BP 121/64; PULSE 78; RESP 18; TEMP 36.7; O2SAT 95
[2020-06-19] MEDS: aspirin 81 mg Chew Tablet PO (08:29)
[2020-06-19] MEDS: gabapentin 300 mg Capsule PO (08:29)
[2020-06-19] MEDS: metoprolol tartrate 25 mg Tablet PO (08:30)
[2020-06-19] MEDS: sennosides-docusate Tablet 2 TAB PO (08:30)
--- NOTE | 2020-06-19 10:11 | PC.NURSE ---
HOME HEALTH DISCUSSED HOME HEALTH WITH PT - CONTINUES TO REFUSE
--- NOTE | 2020-06-19 10:18 | PC.NURSE ---
DISCHARGE NOTE DISCHARGE INSTRUCTIONS GIVEN PER THIS NURSE TO PATIENT - VERBALIZES UNDERSTANDING
[2020-06-19 11:00] VITALS: BP 128/72; PULSE 62; RESP 18; TEMP 36.6; O2SAT 94
--- NOTE | 2020-06-19 11:01 | PM.DCS ---
Discharge Providers Date of Admission: 06/18/20 08:44 Date of Discharge: June 19, 2020 Attending Provider at Admission: Isaias Rothman MD Attending Provider at Discharge: Isaias Rothman MD Primary Care Provider: Arnold Johnston MD Diagnoses at Discharge Discharge Diagnosis (1) Osteoarthritis of left knee: Status: Resolved (2) Status post left knee replacement: Status: Acute Reason for Visit Reason for Visit: primary osteoarthritis Hospital Course Hospital Course Mr. Arguello underwent elective left total knee arthroplasty. He did very well. His pain was controlled with oral medications. He made excellent progress with therapy. He was managed with aspirin and pumps for DVT prophylaxis. By the first postoperative day he was independent with his exercises and stable for days. He had a good understanding of his home exercise program and I decision was made to go without home health physical therapy. Physical Exam Narrative: EXAM NARRATIVE: On the day of discharge his knee incision was clean. They had no drainage. There is minimal swelling in the thigh and knee and the calf. No distal neurovascular deficits were noted Urinary Catheter Management^: Kyle: Cath Placed During This Visit: yes, but has since been removed by the nurse Reason for Continuing Indwelling Catheter: Decision to DC Catheter Urinary Catheter Date of Insertion: 06/18/20 Urinary Catheter Time of Insertion: 07:25 Date Urinary Catheter Removed: 06/19/20 Time Urinary Catheter Discontinued: 06:18 Discharge Data Data Completed and Pending: Completed Studies During Hospitalization Category Date Time Status XR knee LT 1-2V 7 3560 Routine Exams 06/18/20 09:03 Completed Labs from last 24 hours 06/19/20 03:15 Hgb 12.8 Vitals: Last Vital Signs Temp 97.9 F 06/19/20 11:00 Pulse 62 06/19/20 11:00 Resp 18 06/19/20 11:00 BP 128/72 06/19/20 11:00 Pulse Ox 94 06/19/20 11:00 Discharge Plan Discharge Patient Disposition: Home Condition: Stable Prescriptions: New celecoxib 200 mg Capsule 200 mg PO Q12H 14 Days Qty: 28 RF: 0 acetaminophen 500 mg Tablet 1,000 mg PO Q8H 14 Days Qty: 84 RF: 0 gabapentin 300 mg Capsule 300 mg PO BID 7 Days Qty: 14 RF: 0 oxycodone 5 mg Tablet 5 mg PO Q4H PRN (Reason: severe PAIN) 7 Days Qty: 40 RF: 0 Continued metoprolol tartrate 25 mg tablet 25 mg PO BID 30 Days Qty: 60 RF: 5 tramadol 50 mg tablet 50 mg PO DAILY PRN (Reason: Pain) RF: 0 mupirocin 2 % ointment 1 applic topical BID Qty: 22 RF: 0 aspirin 81 mg Tablet,Chewable 81 mg PO DAILY RF: 0 Discharge Orders: Discharge Order (Routine); Ordered 06/19/20 Ordered By: Isaias Rothman Other Ambulatory Orders: DME: Walker (Order) Location: None Selected Ordered By: Isaias Rothman Referrals: Isaias Rothman MD [Physician] - 07/03/20 10:15 am Discharge Diet: Advance as tolerated Discharge Activity: Limit activity as instructed Patient Instructions: Gabapentin (By mouth), Oxycodone, Rapid Release (By mouth), Celecoxib (By mouth), Total Knee Replacement (DC) Activity Restrictions/Additional Instructions: Okay to shower Keep Tubigauze sleeve in place for swelling. Okay to remove for hygiene. Apply FirstIce up to 20 min/hr for pain and swelling Take Celebrex twice a day for the next 15 days for pain , discontinue other anti-inflammatories Take Neurontin twice a day for 7 days. Take Tylenol 500mg (1-2 tabs) as needed 3 times a day for mild pain take oxycodone for breakthrough pain. Exercises per physical therapy. May weight-bear as tolerated on total knee arthroplasty Discharge Attestations Time Spent in Discharge Care*: other Quality Metrics Clinical Quality Measures During this hospital stay, did patient experience: None Coding Level of Care Code Acute g DC note Diagnoses Osteoarthritis of left knee M17.12 Status post left knee replacement Z96.652
[2020-06-19 13:25] VITALS: BP 128/72; PULSE 62; RESP 18; TEMP 36.6; O2SAT 94
--- NOTE | 2020-06-19 13:29 | PC.OT ---
PATIENT REPORTS THAT HE DONNED HIS OWN JEANS AND SHOES TODAY. NO FURTHER SKILLED OT REQUIRED AT THIS TIME. DISCHARGE OT.
== END 2020-06-19 14:20 | disposition home or self-care (01) ==
LOC: MEDSURG 08:44
PROVIDERS: Admitting Provider Orthopaedic Surgery; Family Provider Family Medicine; PCP Family Medicine; Visit Provider Orthopaedic Surgery
PROC: (CPT 27447; principal; 2020-06-18 07:00)
DX: M17.12 Unilateral primary osteoarthritis, left knee (principal); F17.220 Nicotine dependence, chewing tobacco, uncomplicated; I48.91 Unspecified atrial fibrillation; I10 Essential (primary) hypertension; I25.2 Old myocardial infarction; K21.9 Gastro-esophageal reflux disease without esophagitis
CPT/HCPCS: 27447; 36415; 51702; 64447; 73560; 76942; 85018; 93005; 97110; 97116; 97161; 97165; 97530; C1776; G0378; J0171; J0690; J1100; J1580; J1885; J2250; J2405; J2704; J2795; J7030

== ENCOUNTER 2020-07-02 17:41 | Emergency (ER) | payer SELFPAY ==
[2020-07-02 17:43] VITALS: BP 148/80; PULSE 92; RESP 26; TEMP 37; O2SAT 97; BMI 27.6
--- NOTE | 2020-07-02 17:58 | XRR_ITS ---
PROCEDURE INFORMATION: Exam: XR Chest Exam date and time: 07/02/2020 6:31 PM Age: 54 years old Clinical indication: Shortness of breath; Chest pain; Type not specified; Prior surgery; Surgery type: RT rib; Additional info: Cp TECHNIQUE: Imaging protocol: XR of the chest. Views: Frontal portable upright view of the chest. COMPARISON: CR XR chest 1V portable [id number] 12/25/2019 10:27 AM FINDINGS: Lungs: The lungs are clear bilaterally. The pulmonary vasculature is normal. Pleural spaces: No pleural effusion. No pneumothorax. Heart/Mediastinum: The heart is normal in size and contour. Mediastinum: Stable. Bones/joints: Stable. XR/XR chest 1V portable [id number] IMPRESSION: No acute cardiopulmonary abnormality identified.
--- NOTE | 2020-07-02 17:59 | ECG_ITS ---
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 Measurements Intervals [place] Rate: 74 P: 42 FL: 124 QRS: -5 QRSD: 108 T: 29 QT: 380 QTc: 422 Interpretive Statements SINUS RHYTHM INCOMPLETE RIGHT BUNDLE BRANCH BLOCK [90+ ms QRS DURATION, TERMINAL R IN V1/V2, 40+ ms S IN I/aVL/V4/V5/V6] Compared to ECG 06/18/2020 10:43:03 Incomplete right bundle-branch block now present Sinus bradycardia no longer present Electronically Signed On 07-03-2020 12:10:50 CDT by Brittany Hathaway M.D. [id number] f
[2020-07-02 18:23] VITALS: BP 140/65; PULSE 71; RESP 14; O2SAT 96
--- NOTE | 2020-07-02 19:14 | W.ED.GENADLT ---
HPI - General Adult General: Chief complaint: Shortness of Breath/Dyspnea Stated complaint: sob. tightness in chest, high heartrate Time Seen by Provider: 07/02/20 17:54 History of Present Illness: HPI narrative: 54-year-old male presents with shortness of breath, tightness in his chest, feels like his heart racing. He complains of substernal chest tightness. He reports it started by an hour before he got here. He reports he has had a prior cardiac history being told he had a heart attack in the past however patient has never had a heart cath per him. Patient has a history of palpations. He reports that this is resolved. Patient reports that shortness of breath and tightness in his chest is improved. No reports of cough, fever or chills. No nausea vomiting or diaphoresis. Patient denies any radiation of the pain. pt reports knee replacement about 2 weeks ago Associated symptoms: Reports chest pain, dyspnea and palpitations; Deny headache(s), malaise, nausea, syncope or vomiting Review of Systems Const: Denies: fever(s), chills or malaise Eyes: Denies: change in vision ENMT: Denies: throat pain Card: Reports: chest pain and palpitations; Denies: lightheadedness or syncope Resp: Reports: dyspnea; Denies: productive cough, non-productive cough or wheezing GI: Denies: abdominal pain, nausea or vomiting : Denies: flank pain, difficulty urinating or dysuria Skin/Breast: Denies: rash Neuro: Denies: headache(s) PFS ED PFSH: Medical History Atypical chest pain Benign essential HTN History of smoking HTN (hypertension) Nephrolithiasis Surgical History H/O lithotripsy Family History Mother CAD (coronary artery disease), Onset Age: 56 CABG Diabetes Grandfather Cancer Grandmother Diabetes Father Diabetes Brother Diabetes Sister Diabetes Denies family history of Clotting disorder Dementia Chronic kidney disease (CKD) Suicide Anesthesia complication Bleeding disorder Lung disease Stroke Social History Smoking and tobacco status: former smoker Quit status (tobacco): has quit using tobacco Former quit date comment: 4 months ago Alcohol intake: current Alcohol intake frequency: 0-2 Drinks per Day Alcohol type: beer Lives independently: Yes Household members: spouse Marital status: Current occupational status: employed Physical Exam Const: COMMON NORMALS: no acute distress, patient oriented x3, no limitations and alert Resp: COMMON NORMALS: normal respiratory effort and clear to auscultation bilaterally EFFORT & INSPECTION: Yes able to speak in complete sentences AUSCULTATION: clear to auscultation bilaterally Cardio: COMMON NORMALS: regular rate and regular rhythm RATE: regular rate RHYTHM: regular rhythm GI: COMMON NORMALS: Soft to palpation and non-tender PALPATION: Yes Soft to palpation Extremity: COMMON NORMALS: normal to inspection, full ROM and capillary refill normal Neuro: COMMON NORMALS: patient oriented x3 and no focal motor deficits SENSORIUM/ORIENTATION: Yes alert Psych: COMMON NORMALS: mental status grossly normal, Normal thought process present, normal affect and speech normal SPEECH: Yes normal speech THOUGHT PROCESS: Normal thought process present Skin: COMMON NORMALS: no rashes or lesions noted NARRATIVE SKIN EXAM: Left knee replacement incision clean dry and intact GENERAL SKIN EXAM: no rashes or lesions noted Course Vital Signs: Vital signs: Vital Signs Temperature 98.6 F 07/02/20 17:43 Pulse Rate 64 07/02/20 21:29 Respiratory Rate 19 H 07/02/20 21:29 Blood Pressure 150/73 07/02/20 21:29 Pulse Oximetry 97 07/02/20 21:29 MDM - General Adult MDM Narrative: Medical decision making narrative: Patient with normal vital signs heart rate in the 60s, oxygen in the upper 90s 90s to 100. Patient with normal EKG, patient with 2 - troponins. Patient did have a recent knee replacement however his vitals symptoms are not real consistent with a PE. I did discuss with him that if he gets worsening shortness of breath that returns, or sharp chest pains he should be reevaluated. Patient has no further episodes of chest pain. Patient stable and will be discharged Lab Data: Labs: Lab Results 07/02/20 07/02/20 07/02/20 Range/Units 19:40 19:40 19:40 WBC 11.3 H (4.0-10.0) 10^3/ uL RBC 4.61 (4.1-5.3) 10^6/u L Hgb 13.0 (11.7-16.6) g/dL Hct 40.5 L (42.0-52.0) % MCV 87.9 (80-94) fL MCH 28.2 (28.0-34.0) pg MCHC 32.1 (30.0-36.0) g/dL RDW 14.0 (12.1-15.1) % Plt Count 317 (130-400) 10^3/c mm MPV 10.7 H (7.4-10.4) fL Neut % (Auto) 63.4 % Lymph % (Auto) 25.5 % [place] % (Auto) 7.2 % Eos % (Auto) 2.9 % Baso % (Auto) 0.6 % Neut # (Auto) 7.13 (1.8-7.7) 10^3/u L Lymph # (Auto) 2.9 (0.8-4.8) 10^3/u L [place] # (Auto) 0.8 (0.2-0.9) 10^3/u L Eos # (Auto) 0.3 (0.0-0.8) 10^3/u L Baso # (Auto) 0.1 (0.0-0.1) 10^3/u L Nucleated RBC % (a uto) 0 % Nucleated RBCs # 0.0 /100WBC Sodium 139 (136-145) mmol/L Potassium 4.1 (3.5-5.1) mmol/L Chloride 103 (98-107) mmol/L Carbon Dioxide 25 (22-29) mmol/L Anion Gap 15.1 (5-19) BUN 19 (6-20) mg/dL Creatinine 0.9 (0.7-1.2) mg/dL GFR Calculation 87.3 L (90-130) mL/min Glucose 164 H (65-115) mg/dL Calculated Osmolal ity 294 (285-295) mOsm/k g Calcium 8.9 (8.5-10.5) mg/dL Total Bilirubin 0.4 (0.15-1.2) mg/dL AST 19 (0-40) U/L ALT 30 (0-41) U/L Alkaline Phosphata se 101 (40-130) IU/L Troponin T Baselin e 8 (0-15) ng/L Troponin T 120 [place] (0-15) ng/L Delta Troponin T (0-10) ABS# NT-Pro-B Natriuret Pep 48 (0-125) pg/mL Total Protein 6.4 L (6.6-8.7) g/dL Albumin 4.1 (3.5-5.2) g/dL Globulin 2.3 (1.3-4.6) g/dL 07/02/20 Range/Units 20:35 WBC (4.0-10.0) 10^3/ uL RBC (4.1-5.3) 10^6/u L Hgb (11.7-16.6) g/dL Hct (42.0-52.0) % MCV (80-94) fL MCH (28.0-34.0) pg MCHC (30.0-36.0) g/dL RDW (12.1-15.1) % Plt Count (130-400) 10^3/c mm MPV (7.4-10.4) fL Neut % (Auto) % Lymph % (Auto) % [place] % (Auto) % Eos % (Auto) % Baso % (Auto) % Neut # (Auto) (1.8-7.7) 10^3/u L Lymph # (Auto) (0.8-4.8) 10^3/u L [place] # (Auto) (0.2-0.9) 10^3/u L Eos # (Auto) (0.0-0.8) 10^3/u L Baso # (Auto) (0.0-0.1) 10^3/u L Nucleated RBC % (a uto) % Nucleated RBCs # /100WBC Sodium (136-145) mmol/L Potassium (3.5-5.1) mmol/L Chloride (98-107) mmol/L Carbon Dioxide (22-29) mmol/L Anion Gap (5-19) BUN (6-20) mg/dL Creatinine (0.7-1.2) mg/dL GFR Calculation (90-130) mL/min Glucose (65-115) mg/dL Calculated Osmolal ity (285-295) mOsm/k g Calcium (8.5-10.5) mg/dL Total Bilirubin (0.15-1.2) mg/dL AST (0-40) U/L ALT (0-41) U/L Alkaline Phosphata se (40-130) IU/L Troponin T Baselin e (0-15) ng/L Troponin T 120 Min [place] 6.76 (0-15) ng/L Delta Troponin T -1.24 L (0-10) ABS# NT-Pro-B Natriuret Pep (0-125) pg/mL Total Protein (6.6-8.7) g/dL Albumin (3.5-5.2) g/dL Globulin (1.3-4.6) g/dL EKG Data^: EKG 1: Attestation: I personally reviewed and interpreted this EKG as follows: EKG interpretation date: 07/02/20 EKG interpretation time: 18:25 Interpretation: sinus rhythem, incomplete RBBB, HR 74 Discharge Plan Discharge Prescriptions: No Action (DME) Knee immobilizer See Rx Instructions .ROUTE .MEDSUPPLY Qty: 1 RF: 0 acetaminophen 500 mg Tablet 1,000 mg PO Q8H 14 Days Qty: 84 RF: 0 nitroglycerin 0.4 mg tablet, sublingual 0.4 mg sublingual Q5M PRN (Reason: Chest Pain) RF: 0 metoprolol tartrate 25 mg tablet 25 mg PO BID@0700,1900 RF: 0 aspirin 81 mg Tablet,Chewable 81 mg PO DAILY@0700 RF: 0 Coding Level of Care Code ED Driver'S License Examiner for Chg Fwd Exam Comprehensive
--- NOTE | 2020-07-02 19:15 | PC.NURSE ---
report received from GEM ZABALA and care transferred to MOY Rowe
[2020-07-02 19:42] VITALS: BP 134/72; PULSE 66; RESP 14; O2SAT 97
[2020-07-02 19:50] LABS: Basophils # 0.1 10^3/uL (0.0-0.1); Basophils % 0.6 %; Eosinophils # 0.3 10^3/uL (0.0-0.8); Eosinophils % 2.9 %; Hematocrit 40.5 % (42.0-52.0); Lymphocytes # 2.9 10^3/uL (0.8-4.8); Lymphocytes % 25.5 %; Mean Corpuscular HGB Conc 32.1 g/dL (30.0-36.0); Mean Corpuscular Hemoglobin 28.2 pg (28.0-34.0); Mean Corpuscular Volume 87.9 fL (80-94); Mean Platelet Volume 10.7 fL (7.4-10.4); Monocytes # 0.8 10^3/uL (0.2-0.9); Monocytes % 7.2 %; Neutrophils # 7.13 10^3/uL (1.8-7.7); Neutrophils % 63.4 %; Nucleated Red Blood Cells % 0 %; Platelet Count 317 10^3/cmm (130-400); Red Blood Count 4.61 10^6/uL (4.1-5.3); White Blood Count 11.3 10^3/uL (4.0-10.0)
--- NOTE | 2020-07-02 19:59 | ECG_ITS ---
[facility] Test Date: 2020-07-02 Pat Name: Dru Servin Department: Room: Gender: Male Territory Account Representative: : 1965 Requested By: Francisco Sotelo Order Number: [id number] Marni MD: Brittany Hathaway M.D. Measurements Intervals [place] Rate: 66 P: 42 [place]: 130 QRS: -11 QRSD: 110 T: 26 QT: 386 QTc: 406 Interpretive Statements SINUS RHYTHM INCOMPLETE RIGHT BUNDLE BRANCH BLOCK [90+ ms QRS DURATION, TERMINAL R IN V1/V2, 40+ ms S IN I/aVL/V4/V5/V6] Compared to ECG 07/02/2020 18:25:24 No significant changes Electronically Signed On 07-03-2020 12:34:30 CDT by Brittany Hathaway M.D. [id number] f
[2020-07-02 20:11] VITALS: BP 129/53; PULSE 73; RESP 18; O2SAT 99
[2020-07-02 20:13] LABS: Troponin(5th) Baseline 8 ng/L (0-15)
[2020-07-02 20:20] LABS: Alanine Aminotransferase 30 U/L (0-41); Albumin Level 4.1 g/dL (3.5-5.2); Alkaline Phosphatase 101 IU/L (40-130); Anion Gap 15.1 (5-19); Aspartate Amino Transferase 19 U/L (0-40); Blood Urea Nitrogen 19 mg/dL (6-20); Calcium 8.9 mg/dL (8.5-10.5); Carbon Dioxide 25 mmol/L (22-29); Chloride 103 mmol/L (98-107); Globulin 2.3 g/dL (1.3-4.6); Glomerular Filtration Rate 87.3 mL/min (90-130); Glucose 164 mg/dL (65-115); NT Pro B Type Natriuretic Pept 48 pg/mL (0-125); Osmolality Calculated 294 mOsm/kg (285-295); Potassium 4.1 mmol/L (3.5-5.1); Sodium 139 mmol/L (136-145); Total Bilirubin 0.4 mg/dL (0.15-1.2); Total Protein 6.4 g/dL (6.6-8.7)
[2020-07-02 21:08] LABS: Troponin 5 2HR 6.76 ng/L (0-15)
[2020-07-02 21:10] LABS: Troponin 5 2HR Delta -1.24 ABS# (0-10)
[2020-07-02 21:29] VITALS: BP 150/73; PULSE 64; RESP 19; O2SAT 97
[2020-07-02 22:13] VITALS: BP 145/51; PULSE 79; RESP 16; O2SAT 96
== END 2020-07-02 22:14 | disposition home or self-care (01) ==
PROVIDERS: Emergency Provider Student in an Organized Health Care Education/Training Program; PCP Family Medicine
DX: R06.02 Shortness of breath (principal); R07.9 Chest pain, unspecified; I10 Essential (primary) hypertension; Z87.891 Personal history of nicotine dependence
CPT/HCPCS: 36415; 71045; 80053; 83880; 84484; 85025; 93005; 99284

== ENCOUNTER → 2020-07-31 09:38 | Outpatient (BNVA) | payer SELFPAY | PROVIDERS: PCP Family Medicine; Visit Provider Orthopaedic Surgery | DX: Z96.652 Presence of left artificial knee joint (principal) | CPT/HCPCS: 73560; 73565 ==

== ENCOUNTER → 2021-07-05 08:54 | Outpatient (BNVA) | payer OTHER, SELFPAY | PROVIDERS: PCP Family Medicine; Visit Provider Orthopaedic Surgery | DX: M17.12 Unilateral primary osteoarthritis, left knee (principal) | CPT/HCPCS: 73560; 73565 ==

== ENCOUNTER 2023-11-01 10:24 | Emergency (ER) | payer OTHER, SELFPAY ==
[2023-11-01 10:32] VITALS: BP 142/88; PULSE 77; RESP 17; TEMP 36.4; O2SAT 98; BMI 27.3
--- NOTE | 2023-11-01 10:53 | CTR_ITS ---
PROCEDURE INFORMATION: Exam: CT Abdomen And Pelvis Without Contrast Exam date and time: 11/01/2023 11:04 AM Age: 58 years old Clinical indication: Abdominal pain; Localized; Right; Additional info: Right flank pain, suspected msk back pain; Came for R/O kidney stone/mass TECHNIQUE: Imaging protocol: Computed tomography of the abdomen and pelvis without contrast. Radiation optimization: All CT scans at this facility use at least one of these dose optimization techniques: automated exposure control; mA and/or kV adjustment per patient size (includes targeted exams where dose is matched to clinical indication); or iterative reconstruction. COMPARISON: CR XR chest 1V portable [id number] 07/02/2020 6:30 PM RADIATION DOSE METRICS: Total DLP (mGy-cm): 560.71 FINDINGS: Lungs: Lung bases are clear as visualized. Liver: There is diffuse fatty infiltration of the liver. The liver is otherwise normal. Gallbladder and biliary ducts: There are gallstones within the gallbladder. No pericholecystic inflammatory changes noted. Pancreas: Normal. No ductal dilation. Spleen: Normal. No splenomegaly. Adrenal glands: Normal. No mass. Kidneys and ureters: There are nonobstructing renal calculi on the right. No hydronephrosis is noted. No ureteral calculi are identified. Stomach and bowel: There are scattered colonic diverticula. No large bowel wall thickening is appreciated. No dilated loops of large or small bowel is appreciated. Appendix: No evidence of appendicitis. Intraperitoneal space: See Lymph nodes finding. Vasculature: Unremarkable. No abdominal aortic aneurysm. Lymph nodes: There are a few small mesenteric lymph nodes. There is mesenteric edema with irregular masslike density within the mesentery measuring 3 x 1.4 cm in size. This density measures 38 Hounsfield units in density and possibly could represent some hyperdense fluid or an enlarged lymph node or mass. This was not present on prior exam. Urinary bladder: Unremarkable as visualized. Reproductive: Unremarkable as visualized. Bones/joints: Unremarkable. No acute fracture. Soft tissues: Unremarkable. CT/CT kidney stone [id number] IMPRESSION: 1. Nephrolithiasis on the right. No ureteral stones are identified. 2. Selina mesentery with small mesenteric lymph nodes. There is a larger indeterminate mass within the more distal mesentery measuring 3 cm in size. Etiology is uncertain. Malignancy not excluded. GI/surgical referral may be of benefit for further appropriate workup/follow-up. 3. Cholelithiasis.
--- NOTE | 2023-11-01 10:56 | W.ED.BACK ---
HPI - Back Pain/Injury General: Chief Complaint: Back Pain/Injury Stated Complaint: Lower back pain Time Seen by Provider: 11/01/23 10:38 History of Present Illness: 58-year-old male presents to the emergency department with right low back pain. Patient notes it has been going on for about 4 to 5 days. It is worse with movement. He reports it slightly better if he holds his thumb into his paraspinal muscle and massages. It does wrap around slightly to his right lateral abdomen. He was seen for this at [facility] in [place] on 10/27. They did a CMP and a urine analysis. They determined that it was musculoskeletal and gave him Flexeril 5 mg to take 3 times daily as needed. No other medications were provided. Patient reports it still bothering him. He does remember having a kidney stone once and wonders whether this could be related. He also reports he has a shy bladder and frequently takes him quite a while to get started urinating. He does not think he is retaining but notes some difficulty getting started. This is not new for him. He does report while he is standing waiting for the urine to come he does notice some back pain. No blood in the urine. No fevers, chills, nausea, vomiting, constipation, diarrhea, mucus in the stool, blood in the stool, black in the stool, testicular pain, appetite change, weight loss, numbness, tingling, weakness, immunocompromise, perineal numbness. Related Data Home Medications Medication Instructions Recorded Confirmed aspirin 81 mg chewable tablet 81 mg PO DAILY@0700 12/26/19 07/05/21 metoprolol tartrate 25 mg tablet 25 mg PO BID@0700,1900 07/02/20 07/05/21 nitroglycerin 0.4 mg sublingual 0.4 mg sublingual Q5M PRN Chest 07/02/20 07/05/21 tablet Pain Previous Rx's Medication Instructions Recorded Knee immobilizer #1 ea 06/21/20 acetaminophen 500 mg capsule 500 mg PO Q6H PRN mild pain (scale 11/01/23 score 1-4) #30 caps camphor 4 %-methyl salicylate 30 1 applic topical BID PRN muscle 11/01/23 %-menthol 10 % topical cream pain 2 weeks #114 grams (Muscle Rub Ultra-Strength) hydrocodone 5 mg-acetaminophen 325 1 tab PO Q6H PRN severe pain 11/01/23 mg tablet (scale score 7-10) #14 tabs naproxen 375 mg tablet 375 mg PO BID PRN pain #14 tabs 11/01/23 Allergies Allergy/AdvReac Type Severity Reaction Status Date / Time No Known Allergies Allergy Verified 09/27/21 18:12 Review of Systems General: Reports: 10 or more systems reviewed and unremarkable except in HPI and below PFSH ED PFSH: Medical History (Updated 11/01/23 @ 12:01 by Ousmane Valera MD) History of smoking Atypical chest pain Benign essential HTN Nephrolithiasis HTN (hypertension) Surgical History H/O lithotripsy Family History Mother CAD (coronary artery disease), Onset Age: 56 CABG Diabetes Grandfather Cancer Grandmother Diabetes Father Diabetes Brother Diabetes Sister Diabetes Denies family history of Clotting disorder Dementia Chronic kidney disease (CKD) Suicide Anesthesia complication Bleeding disorder Lung disease Stroke Social History Smoking and tobacco/nicotine status: former use of tobacco/nicotine Quit status (tobacco/nicotine): has quit using Former quit date comment: 4 months ago Alcohol intake: current Alcohol intake frequency: 0-2 Drinks per Day Alcohol type: beer Substance/Drug Use: never Lives independently: Yes Household members: spouse Marital status: Current occupational status: employed Physical Exam Const: COMMON NORMALS: no limitations and alert EXAM LIMITATIONS: no altered mental status HENMT: COMMON NORMALS: normocephalic, atraumatic and external ears normal HEAD & SCALP: normocephalic and atraumatic EXTERNAL EAR: Yes external ears normal MOUTH: no muffled voice Eye: COMMON NORMALS: no scleral icterus Neck/C-Spine: GENERAL: Yes normal visual inspection and Yes trachea midline Resp: COMMON NORMALS: normal respiratory effort, No use of accessory muscles and clear to auscultation bilaterally AUSCULTATION: clear to auscultation bilaterally Cardio: COMMON NORMALS: regular rate RATE: regular rate GI: COMMON NORMALS: Soft to palpation and non-tender PALPATION: Yes Soft to palpation and No Guarding due to palpation present (GI) Back/Pelvis: OTHER: The patient has right lumbar paraspinal tenderness using the tips of my finger to apply pressure. If I apply percussion through his back it does not cause him any pain. If I do passive range of motion it does cause some exacerbation of right low back pain. There is no right CVA percussion tenderness or left CVA percussion tenderness. The abdomen is benign. Straight leg raise is negative. Patient is neurovascularly intact in both lower extremities. Extremity: COMMON NORMALS: normal to inspection Neuro: COMMON NORMALS: moves all extremities, no focal motor deficits and no sensory deficits noted SENSORIUM/ORIENTATION: Yes alert SPEECH: speech normal Psych: COMMON NORMALS: mental status grossly normal, Normal thought process present, cooperative, normal affect and speech normal SPEECH: Yes normal speech THOUGHT PROCESS: Normal thought process present Skin: COMMON NORMALS: no rashes or lesions noted, turgor normal and no jaundice GENERAL SKIN EXAM: no rashes or lesions noted and turgor normal Course ED course: Patient CT scan showed incidental right nephrolithiasis, gallstones, and a garo mesentery with mildly increased size and at least one of the lymph nodes. No ureterolithiasis. No signs of colitis or diverticulitis. The patient was counseled about these incidental findings. He has never had a colonoscopy. I advised that he have 1 urgently given these nonspecific abnormal findings in the mesentery. I also recommended that he have primary care for follow-up of these findings. The patient is going to moved to this area. I have written case management to get a referral for primary care and ER follow-up as well as for colonoscopy. Concerning his right low back pain, this will be treated like routine muscle strain. There is no other red flags on my history or exam that require further workup emergently or admission. I do not think the incidental findings on CT have anything to do with his back pain. The patient is unable to urinate and since he had his urine checked 4 days ago, it is a reasonable to discharge with strict return precautions. I did note that his prostate was somewhat enlarged on CT. This will be something he can speak about with his primary care doctor on follow-up. I have noted this in the physical exam, but to reiterate he did not have any CVA percussion tenderness or bladder tenderness. Vital Signs: Vital signs: Vital Signs Temperature 97.6 F 11/01/23 10:32 Pulse Rate 77 11/01/23 10:32 Respiratory Rate 16 11/01/23 11:23 Blood Pressure 142/88 11/01/23 10:32 Pulse Oximetry 95 11/01/23 11:23 MDM - Back Pain/Injury Medical Decision Making I have a strong feeling this is musculoskeletal back pain. He has all the classic features of musculoskeletal back pain on history and exam. Differential diagnosis would also include atypical kidney stone presentation, renal mass, hydronephrosis, bladder retention, UTI, atypical appendicitis or colitis, other. The patient was able to pull up his CMP from 4 days ago and he has normal kidney function. Everything on the CMP was reassuring. He reports he did have a urine analysis and that was also normal 4 days ago. However he cannot show me this. Patient reports he may be able to provide a urine sample but since he already went this morning sometimes it takes him a few hours. He is contemplating whether it is worth doing an in and out catheter since he just had a urine analysis 4 days ago. Labs Radiology Impressions Abdomen/Pelvis CT 11/01/23 10:53 IMPRESSION: 1. Nephrolithiasis on the right. No ureteral stones are identified. 2. Garo mesentery with small mesenteric lymph nodes. There is a larger indeterminate mass within the more distal mesentery measuring 3 cm in size. Etiology is uncertain. Malignancy not excluded. GI/surgical referral may be of benefit for further appropriate workup/follow-up. 3. Cholelithiasis. No radiology studies performed this visit Discharge Plan Discharge Patient Disposition: Home Clinical Impression: Gallstones, Nephrolithiasis, Nonspecific mesenteric adenitis Strain of lumbar region Qualifiers: Encounter type: initial encounter Qualified Code(s): S39.012A - Strain of muscle, fascia and tendon of lower back, initial encounter Condition: Stable Prescriptions: New naproxen 375 mg tablet 375 mg PO BID PRN (Reason: pain) Qty: 14 0RF Muscle Rub Ultra-Strength 4-30-10 % cream 1 applic topical BID PRN (Reason: muscle pain) 14 Days Qty: 114 0RF hydrocodone-acetaminophen 5-325 mg tablet 1 tab PO Q6H PRN (Reason: severe pain (scale score 7-10)) Qty: 14 0RF acetaminophen 500 mg capsule 500 mg PO Q6H PRN (Reason: mild pain (scale score 1-4)) Qty: 30 0RF No Action (DME) Knee immobilizer See Rx Instructions .ROUTE .MEDSUPPLY Qty: 1 0RF Rx Instructions: As directed nitroglycerin 0.4 mg tablet, sublingual 0.4 mg sublingual Q5M PRN (Reason: Chest Pain) metoprolol tartrate 25 mg tablet 25 mg PO BID@0700,1900 aspirin 81 mg Tablet,Chewable 81 mg PO DAILY@0700 Discharge Orders: Discharge ED (Routine); Ordered 11/01/23 Ordered By: Ousmane Valera Referrals: Arnold Johnston MD [Primary Care Provider] - Discharge Activity: Increase activity as tolerated Patient Instructions: Acute Low Back Pain (ED), Opioid Safety, Pain Management Activity Restrictions/Additional Instructions: You may take up to 3000 mg of acetaminophen (Tylenol) per day. If you are going to use hydrocodone, make sure that you account for the Tylenol that is combined in this medication. Additionally, please do not drive or operate heavy machinery while under the influence of opiates. Back strains often take 1 to 2 weeks to resolve completely. Make sure you are using the medications provided and doing heating pads and stretching frequently. Your CT scan today did not show any kidney stones, kidney masses, or other emergent concerns. It did show nonspecific increased lymph nodes in your mesentery of the abdomen. This is very important to follow-up on. You need to have colonoscopy and follow-up with primary care. I have referred you to a primary care doctor and referred you for colonoscopy. Please answer your phone if you get a call over the next few days to establish care. Coding Level of Care Code ED Human Services Care Specialist for Jigar Sun
[2023-11-01 11:23] VITALS: RESP 16; O2SAT 95
[2023-11-01] MEDS: ketorolac 30 mg/mL INJ IM (11:23)
[2023-11-01] MEDS: HYDROmorphone 1 mg/mL INJ 1 mL IM (11:23)
[2023-11-01 12:40] VITALS: BP 108/55; PULSE 62; O2SAT 93
--- NOTE | 2023-11-02 12:03 | DCPLANNER ---
messaged gen surg for er f/u
--- NOTE | 2023-11-03 07:21 | DCPLANNER ---
Message sent to family care to establish PCP.
== END 2023-11-01 14:09 | disposition home or self-care (01) ==
PROVIDERS: Emergency Provider Emergency Medicine; PCP Family Medicine
DX: S39.012A Strain of muscle, fascia and tendon of lower back, initial encounter (principal); K80.20 Calculus of gallbladder without cholecystitis without obstruction; N20.0 Calculus of kidney; I88.0 Nonspecific mesenteric lymphadenitis; Z79.82 Long term (current) use of aspirin; Z87.891 Personal history of nicotine dependence; I10 Essential (primary) hypertension; X58.XXXA Exposure to other specified factors, initial encounter
CPT/HCPCS: 74176; 96372; 99284; J1170; J1885